=== PATIENT | male | born 1945 | race Caucasian/White ===

== ENCOUNTER 2021-03-29 04:19 | Emergency (ER) | payer OTHER ==
[2021-03-29 04:31] VITALS: BP 169/86; PULSE 80; TEMP 98.4; BMI 31.4
[2021-03-29 05:55] LABS: BASO % 0.6 % (0-2.0); HEMATOCRIT 45.6 % (35.4-49); HEMOGLOBIN 15.3 GM/dL (11.7-16.9); LYMPH % 38.6 % (8-40); MCH 27.8 pg (25.7-33.7); MCHC 33.6 g/dl (32.0-35.9); MEAN CELL VOLUME 82.6 fl (80-96); MEAN PLT VOLUME 8.1 fl (7.5-11.1); MONO % 12.7 % (3.8-10.2); NEUT % 44.1 % (42.8-82.8); PLATELET COUNT 192 10^3/uL (134-434); RBC 5.52 M/mm3 (4.00-5.60); RDW 15.7 % (11.9-15.9); WHITE BLOOD COUNT 4.4 K/mm3 (4.0-10.0)
[2021-03-29 06:14] LABS: CALCIUM 8.5 mg/dL (8.5-10.1)
[2021-03-29 06:15] LABS: ALBUMIN 3.6 g/dl (3.4-5.0); BLOOD UREA NITROGEN 12.6 mg/dL (7-18)
[2021-03-29 06:18] LABS: CREATININE 0.8 mg/dL (0.55-1.3)
[2021-03-29 06:20] LABS: BILIRUBIN,TOTAL 0.3 mg/dL (0.2-1); TOT PROT 7.9 g/dl (6.4-8.2)
[2021-03-29] MEDS ORDERED: ACETAMINOPHEN 1000 MG/100 ML VIAL (NON FORMULARY) IVPB ONE (06:35)
[2021-03-29] MEDS ORDERED: ACETAMINOPHEN INJECTION 100 ML IVPB ONE (06:38)
== END 2021-03-29 07:01 | disposition home or self-care (01) ==
LOC: JER 04:19
PROC: 3E033NZ Introduction of Analgesics, Hypnotics, Sedatives into Peripheral Vein, Percutaneous Approach (ICD-10-PCS; principal; 2021-03-29)
DX: G44.009 Cluster headache syndrome, unspecified, not intractable (principal)
CPT/HCPCS: 36415; 70450-TC; 70486-TC; 80053; 85025; 96374; 99285-25; J0131